=== PATIENT | male | born 1965 ===

== ENCOUNTER 2022-12-10 07:58 | Day surgery (SDC) | payer OTHER ==
[~2022-12-10] VITALS: Ht 185.4 cm; Wt 151.5 kg
[2022-12-10] MEDS ORDERED: FURO20 (08:41)
[2022-12-10] MEDS ORDERED: KATERZIA1 MG/1 ML (08:41)
[2022-12-10] MEDS ORDERED: FOLI1 (08:41)
[2022-12-10] MEDS ORDERED: Mag-Tab Sr84 MG (08:41)
[2022-12-10] MEDS ORDERED: Cholecalciferol1 GM (08:41)
[2022-12-10] MEDS ORDERED: LOMAIRA8 MG (08:42)
[2022-12-10] MEDS ORDERED: TELM20 (08:42)
[2022-12-10 10:04] VITALS: BP 154/81
== END 2022-12-10 10:04 | disposition home or self-care (01) ==
LOC: ORSCSDS 07:58
PROVIDERS: Surgery
PROC: 0DBN8ZX Excision of Sigmoid Colon, Via Natural or Artificial Opening Endoscopic, Diagnostic (ICD-10-PCS; principal; 2022-12-10 09:15)
DX: Z12.11 Encounter for screening for malignant neoplasm of colon (principal); D12.5 Benign neoplasm of sigmoid colon; K43.6 Other and unspecified ventral hernia with obstruction, without gangrene; I10 Essential (primary) hypertension; E63.9 Nutritional deficiency, unspecified; G47.33 Obstructive sleep apnea (adult) (pediatric); E66.01 Morbid (severe) obesity due to excess calories; Z68.41 Body mass index [BMI] 40.0-44.9, adult; Z79.899 Other long term (current) drug therapy
CPT/HCPCS: 88305; J2704; J7120